=== PATIENT | male | born 1990 | race African-American/Black ===

== ENCOUNTER 2025-01-13 12:04 | Emergency (ER) | payer OTHER ==
[~2025-01-13] VITALS: Ht 175.3 cm; Wt 78.0 kg
[2025-01-13 12:09] VITALS: O2SAT 98
[2025-01-13 16:24] LABS: BASOPHILS % 0.4 % (0.0-2.0); EOSINOPHILS % 0.0 % (0.0-5.0); HEMATOCRIT. 44.5 % (42.0-52.0); HEMOGLOBIN. 15.1 g/dL (14.0-18.0); LYMPHOCYTES % 34.9 % (20.0-50.0); MEAN PLATELET VOLUME 8.0 fl (7.4-10.4); MONOCYTES % 6.0 % (2.0-8.0); NEUTROPHILS % 58.7 % (40.0-76.0); PLATELET 257 x1000/uL (130-400); RED BLOOD CELL COUNT 4.63 mill/uL (4.7-6.1); RED CELL DISTRIBUTION WIDTH 12.4 % (11.6-14.6)
[2025-01-13 16:40] LABS: CREATININE 1.0 mg/dL (0.6-1.3); UREA NITROGEN BLOOD 6 mg/dL (9-23)
[2025-01-13 16:41] LABS: ETHANOL BLOOD 197 mg/dL (<10)
[2025-01-13 16:52] LABS: *AMPHETAMINES SCREEN URINE NEGATIVE (NEGATIVE)
[2025-01-13 16:53] LABS: *BARBITURATES SCREEN URINE NEGATIVE (NEGATIVE); *BENZODIAZEPINES SCREEN URINE NEGATIVE (NEGATIVE); *COCAINE SCREEN URINE NEGATIVE (NEGATIVE); CANNABINOID URINE SCREEN PRESUMPTIVE POSITIVE (NEGATIVE); ECSTASY MDMA SCREEN URINE CONF.TEST INDICATED (NEGATIVE); METHADONE URINE SCREEN NEGATIVE (NEGATIVE); OPIATES URINE SCREEN NEGATIVE (NEGATIVE); PHENCYCLIDINE URINE SCREEN NEGATIVE (NEGATIVE)
[2025-01-13] MEDS ORDERED: LORAZEPAM 1MG TABLET PO ONE (17:45)
[2025-01-13] MEDS: LORAZEPAM 1MG TABLET PO SCH (17:48)
[2025-01-13] MEDS: QUETIAPINE FUMARATE 50MG TABLET PO SCH (22:08)
[2025-01-14] MEDS: LORAZEPAM 0.5MG TABLET PO ONE (15:22)
[2025-01-14 16:00] VITALS: BP 129/87; PULSE 68; RESP 15; TEMP 37; O2SAT 100
== END 2025-01-14 16:27 ==
LOC: ER 12:04
DX: R45.851 Suicidal ideations (principal); F20.0 Paranoid schizophrenia; F32.A Depression, unspecified; Z20.822 Contact with and (suspected) exposure to COVID-19; V89.2XXA Person injured in unspecified motor-vehicle accident, traffic, initial encounter; Y93.89 Activity, other specified; Y92.89 Other specified places as the place of occurrence of the external cause; Y99.8 Other external cause status
CPT/HCPCS: 80305; 80048; 80307; 80329; 80320; 85025; 36415; 99285; 87426; Z7610; G0480